=== PATIENT | female | born 1990 | race Caucasian/White ===

== ENCOUNTER 2020-02-02 01:38 | Outpatient (CLI) | payer OTHER, SELFPAY ==
[2020-02-02 22:13] LABS: SARS-CoV-2 RNA PCR Negative
== END 2020-02-02 01:39 | disposition home or self-care (01) ==
LOC: ANHCOVIDDT 01:39
PROVIDERS: Visit Provider Obstetrics & Gynecology
DX: Z01.812 Encounter for preprocedural laboratory examination (principal); Z20.828 Contact with and (suspected) exposure to other viral communicable diseases
CPT/HCPCS: 87635; C9803; U0003

== ENCOUNTER 2020-02-05 00:37 | Day surgery (SDC) | payer OTHER, SELFPAY ==
[2020-01-21 13:32] VITALS: BMI 24.2
[2020-02-05] VITALS (9 sets, daily range): BP systolic 86–109; BP diastolic 46–70; PULSE 55–89; RESP 12–16; TEMP 36.3; O2SAT 100
--- NOTE | 2020-02-05 07:14 | WPDHPUPDATE1 ---
History and Physical Update Update Date/Time: 02/05/20 07:14 History and Physical has been reviewed, including an updated exam of the patient. There are NO changes in the patient's condition. Risks, benefits, and alternatives have been discussed and questions answered. Patient agrees to proceed with procedure.
[2020-02-05] MEDS: ACETAMINOPHEN 500 MG TABLET 1000 MG PO (08:02)
--- NOTE | 2020-02-05 08:11 | WPDANESEPPF ---
Anes - Initial Pre Proc Eval Procedure: Operation Date: 02/05/20 08:30 Proposed Procedures p Labiaplasty - Florina Santiago MD Date/Time: 02/05/20 08:11 Surgeon: Florina Santiago MD Pre Op Diagnosis: Hypertrophy of Vulva Patient Data Age: 29 Gender: F Height: 5 ft 2 in Weight: 60 kg Allergies Allergy/AdvReac Type Severity Reaction Status Date / Time Penicillins Allergy Intermediate Hives / Unverified 02/05/20 07:47 Red Face Home Medications Medication Instructions Recorded Confirmed Type clobetasol 1 applic TOPICAL DAILY 01/21/20 02/05/20 History levothyroxine 75 mcg PO DAILY 01/21/20 02/05/20 History Tylenol 1,000 mg PO PRN 02/05/20 02/05/20 History biotin 2,500 mcg PO DAILY 02/05/20 02/05/20 History docosahexaenoic acid-epa [Fish Oil 1 cap PO DAILY 02/05/20 02/05/20 History (with DHA-EPA)] ibuprofen 600 mg PO Q6H PRN 02/05/20 02/05/20 History iron-vitamin B complex tablet PO 02/05/20 History vit no.617-jeilp-rlc 1 tablet PO 02/05/20 History [Alive ] vitamin A 02/05/20 History Patient hx anesthesia problems: none Family hx anesthesia problems: none PMFSH Past Medical History Medical History Hypothyroid Social History Social History Smoking status: Never smoker Second hand tobacco smoke exposure: No Alcohol intake: never Substance use: never Substance use type: does not use Living arrangements: with family Gender identity (if verbalized by the patient): Female Sexual Orientation (if Verbalized by the Patient): Straight or Heterosexual Spiritual care concerns: No Anes - Eval Final PreProcedure Day of Procedure 02/05/20 08:11 Patient weight: normal Heart: regular rate and rhythm Lungs: clear to auscultation Airway: Mallampati scale class II Neurological: alert and oriented Last oral intake: >/= 8 hours ASA classification: II Emergent: no Anesthetic plan: proceed Anesthesia type and monitoring: general LMA and standard monitoring Informed Consent: The patient's anesthetic plan and its attendant risks and benefits were discussed with the patient/family/POA. Questions were solicited and answers provided to the satisfaction of the patient/family/POA.
[2020-02-05] MEDS: LACTATED RINGERS 1,000 ML 30 ML IV CONT ×2 (08:19→10:12)
[2020-02-05] MEDS: BACITRACIN OINTMENT 15 GM TUBE 1 APPLIC TOPICAL (09:28)
[2020-02-05] MEDS: fentaNYL CITRATE INJ (*CRX) 100 MCG/2 ML VIAL 25 MCG IV PUSH ×8 (09:37→10:12)
--- NOTE | 2020-02-05 10:05 | PM.PROC ---
Procedure Note - Detailed Date of procedure: 02/05/20 Pre-op diagnosis: Hypertrophy of Vulva Post-op diagnosis: same Procedure performed: Labial plasty, bilateral Description of procedure: patient was taken the operating room, she was prepped and draped in the dorsal lithotomy position, after induction of general anesthesia. The the bilateral labia were marked with a marking pen to determine the best incision line from the infra clitoral area of the labia minora posteriorly to the labia where it resolves into the vulvar skin. There was hypertrophic skin bilaterally on the labia minora. About a cm and half below the clitoris the skin was incised with a scalpel the skin incisions bilaterally round from the in from infra clitoral area posteriorly to the skin surface of the vulva. It was marked with a marking pen and in the neutral position. Skin incisions were completed trans labial the. Cut areas were cauterized below the skin were bleeding was happening. Skin was then closed with 3 O Vicryl in interrupted sutures without was completed it was covered with bacitracin ointment. Patient was taken recovery room in stable condition. She tolerated the procedure well. Anesthesia: GETA Surgeon: Florina Santiago MD Estimated blood loss (mL): 20 Drains: No Packing: No Pathology: none sent Complications: No immediate complications Condition: stable Disposition: PACU Findings: Hypertrophic labia minora bilaterally
[2020-02-05] MEDS: ONDANSETRON INJ 4 MG/2 ML VIAL IV PUSH (10:35)
--- NOTE | 2020-02-05 10:46 | SUR.PHASEII ---
1035; PT C/O NAUSEA. ZOFRAN GIVEN IV. 1045; PT STATES PAIN 11/11, SHE WOULD LIKE TO EAT SOME GLUTEN FREE TOAST BEFORE TAKING A PAIN PILL. GLUTEN FREE TOAST ORDERED FROM DIETARY
[2020-02-05] MEDS: HYDROmorphone HCL INJ (*CRX) 1 MG/ML SYR 0.5 MG IV PUSH (10:58)
--- NOTE | 2020-02-05 11:05 | SUR.PHASEII ---
REPORT GIVEN TO DAVIDSON VIGIL RN
--- NOTE | 2020-02-05 11:54 | SUR.PHASEII ---
CARE ASSUMED OF PT
--- NOTE | 2020-02-05 12:06 | SUR.PHASEII ---
1200; PT AWAKE, GROGGY. STATES PAIN BETTER AND TOLERABLE NOW. STATES NAUSEA IMPROVED. PT EATING GF TOAST. THEN WILL TAKE A PAIN PILL.
[2020-02-05] MEDS: oxyCODONE HCL (*CRX) 5 MG TAB IR PO (13:00)
--- NOTE | 2020-02-05 13:32 | SUR.PHASEII ---
1300; PT AWAKE AND ALERT. STATES PAIN AND NAUSEA IMPROVED AND READY TO GO HOME. MEETS DISCHARGE CRITERIA
== END 2020-02-05 13:10 | disposition home or self-care (01) ==
PROVIDERS: Visit Provider Obstetrics & Gynecology
PROC: (CPT 56620; principal; 2020-02-05 08:30)
DX: N90.60 Unspecified hypertrophy of vulva (principal); E03.9 Hypothyroidism, unspecified
CPT/HCPCS: 56620; A9270; J1100; J1170; J2250; J2405; J2704; J3010; J7120

== ENCOUNTER 2021-02-05 09:27 | Outpatient (CLI) | payer OTHER, SELFPAY ==
--- NOTE | ~2021-02-05 | XR_ITS ---
EXAMINATION: XR knee RT 3V EXAM DATE: 02/05/2021 09:45 INDICATION: Pain in RT knee, [place]/Feeling W/Bend/Extend,X2yr. TECHNIQUE: Three projections of the right knee. There is no prior study for comparison. FINDINGS: No evidence osteochondral defect or joint body in the right knee joint. There are no acut e fractures or dislocations identified. There is no subcutaneous gas. No joint effusion. There are no radiopaque foreign bodies. IMPRESSION: 1. Unremarkable XR knee RT 3V exam. Reviewed, dictated and finalized at location A.
== END 2021-02-05 09:28 | disposition home or self-care (01) ==
LOC: CHSIMG 09:29
PROVIDERS: PCP Family Medicine; Visit Provider Family Medicine
DX: M25.561 Pain in right knee (principal)
CPT/HCPCS: 73562

== ENCOUNTER 2021-02-23 12:03 | Outpatient (CLI) | payer OTHER, SELFPAY ==
[2021-02-23 13:06] LABS: Influenza A QL RT-PCR Negative (Negative); Influenza B QL RT-PCR Negative (Negative); SARS-CoV-2 RNA PCR Positive (Negative)
== END 2021-02-23 12:04 | disposition home or self-care (01) ==
LOC: CHSLAB 12:05
PROVIDERS: PCP Family Medicine; Visit Provider Family Medicine
DX: U07.1 COVID-19 (principal)
CPT/HCPCS: 87502; C9803; U0003; U0005

== ENCOUNTER 2022-06-18 04:55 | Inpatient (IN) | payer OTHER, SELFPAY ==
[2022-06-18] VITALS (29 sets, daily range): BP systolic 101–149; BP diastolic 61–102; PULSE 91–115; RESP 18; TEMP 36.6–37.3; O2SAT 96; BMI 37.3
--- NOTE | 2022-06-18 05:33 | LDADM ---
This patient, Marianna Rubio, was admitted to Labor/Delivery/Recovery 107 on 06/18/22 at 04:55. Plans for labor, pain management and were discussed with patient. Patient/family oriented to hospital policies and general routines including ID bracelet, bed and alarms, visiting hours, pain management, procedures, bathroom and other care routines, personal items, smoking policy, room service/diet and guest tray routines, security routines, and visiting hours. Patient/Family are encouraged to report perceived risks to care and to ask questions if they do not understand what they are told or what they should do. See OBIX for further documentation.
[2022-06-18 05:38] LABS: Basophils Percent Auto 0.3 % (0.2-1.2); Eosinophils Absolute Auto 0.3 K/mm3 (0-0.3); Hematocrit 35.3 % (37.0-47.0); Hemoglobin 11.9 g/dL (12.0-15.0); Immature Granulocyte Absolute 0.14 K/mm3 (0.00-0.031); Immature Granulocyte Percent A 1.1 % (0-0.5); Lymphocytes Percent Auto 17.4 % (18.3-44.2); Mean Corpuscular HGB Conc 33.7 g/dl (32-36); Mean Corpuscular Hemoglobin 30.4 pg (26-34); Mean Corpuscular Volume 90.3 fl (80-100); Mean Platelet Volume 10.3 fl (7.4-10.4); Monocytes Absolute Auto 0.9 K/mm3 (0.1-0.6); Monocytes Percent Auto 6.6 % (2.6-8.5); Neutrophils Absolute Auto 9.6 K/mm3 (1.3-6.7); Neutrophils Percent Auto 72.6 % (45.5-73.1); Platelet Count Result 197 k/mm3 (150-375); Red Blood Count 3.91 M/mm3 (4.2-5.4); Red Cell Distribution Width 14.1 % (11.5-14.5); White Blood Count 13.2 K/mm3 (4.5-10.0)
[2022-06-18] MEDS: LACTATED RINGERS 1,000 ML 125 ML IV CONT (06:00)
[2022-06-18] MEDS: ceFAZolin 2 GM/D5W 50 ML 2 GM/50 ML BAG IVPB (06:00)
[2022-06-18] MEDS: OXYTOCIN 30 UNITS/NS 500 ML 30 UNITS/500 ML BAG IV CONT (06:00)
--- NOTE | 2022-06-18 06:30 | WPDANESEPP ---
Anes - Eval Pre Procedure Procedure: labor epidural Date/Time: 06/18/22 06:30 Surgeon: amor Preop Diagnosis: pain during labor Pre Op Diagnosis: IOL Patient Data Age: 32 Gender: F Height: 1.57 m Weight: 92.5 kg Last Vital Signs Pulse 98 06/18/22 06:15 BP 108/63 06/18/22 06:15 O2 Del Method Room Air 06/18/22 05:33 Allergies Allergy/AdvReac Type Severity Reaction Status Date / Time Penicillins Allergy Intermediate Hives / Verified 05/29/22 13:33 Red Face Home Medications Medication Instructions Recorded Confirmed Type levothyroxine 75 mcg tablet 75 mcg PO DAILY 01/21/20 06/18/22 History iron-vitamin B complex tablet 1 tablet PO DAILY 02/05/20 06/18/22 History vitamin no.138-folic acid 1 tablet PO DAILY 02/05/20 06/18/22 History 400 mcg-dha 25 mg chewable tablet (Alive ) Laboratory Tests 06/18/22 06/18/22 05:27 05:27 WBC 13.2 K/mm3 H K/mm3 (4.5-10.0) RBC 3.91 M/mm3 L M/mm3 (4.2-5.4) Hgb 11.9 g/dL L g/dL (12.0-15.0) Hct 35.3 % L % (37.0-47.0) MCV 90.3 fl fl (80-100) MCH 30.4 pg pg (26-34) MCHC 33.7 g/dl g/dl (32-36) RDW 14.1 % % (11.5-14.5) Plt Count 197 k/mm3 k/mm3 (150-375) MPV 10.3 fl fl (7.4-10.4) Immature Gran % (Auto) 1.1 % H % (0-0.5) Neut % (Auto) 72.6 % % (45.5-73.1) Lymph % (Auto) 17.4 % L % (18.3-44.2) [place] % (Auto) 6.6 % % (2.6-8.5) Eos % (Auto) 2.0 % % (0-4.4) Baso % (Auto) 0.3 % % (0.2-1.2) Lymph # (Auto) 2.30 K/mm3 K/mm3 (0.9-3.2) [place] # (Auto) 0.9 K/mm3 H K/mm3 (0.1-0.6) Eos # (Auto) 0.3 K/mm3 K/mm3 (0-0.3) Baso # (Auto) 0.0 K/mm3 K/mm3 (0.0-0.1) Abs Immat Gran (auto) 0.14 K/mm3 H K/mm3 (0.00-0.031) Absolute Neuts (auto) 9.6 K/mm3 H K/mm3 (1.3-6.7) Absolute Nucleated RBC 0.0 K/mm3 K/mm3 (0.0-0.012) Nucleated RBC % 0.0 % % (0.0-0.2) RPR Pending Patient hx anesthesia problems: none Family hx anesthesia problems: none Results Review: All pre-operative results and documents have been reviewed as part of the pre-operative evaluation. [facility] Past Medical History Medical History (Updated 06/18/22 @ 06:32 by Selma Edmondson CRNA) Hypothyroid IUP (intrauterine ), incidental Obesity (BMI 30-39.9) Family History Family History (Updated 05/29/22 @ 13:38 by Zaida Sethi RN) Father Liver failure Diabetes mellitus Asthma Hepatitis C Social History Social History Smoking status: Never smoker Second hand tobacco smoke exposure: No Alcohol intake: never Substance use: never Substance use type: does not use Lack of Transportation: No Lack of Food: Never True Current Housing: I Have Housing Concerned About Future Housing: No Difficulty Paying Gas/Electric Bills: No Difficulty Paying for Meds: No Currently Unemployed: No Education: Trade/Vocational Certificate Difficulty w/ Childcare or Family Care: No Living arrangements: with family Gender identity (if verbalized by the patient): Female Sexual Orientation (if Verbalized by the Patient): Straight or Heterosexual Spiritual care concerns: No Exam Day of Procedure 06/18/22 06:30
--- NOTE | 2022-06-18 07:06 | PM.IMHP ---
H&P: HPI History of Present Illness Date/Time: 06/18/22 07:06 Chief Complaint: induction of labor Narrative: Marianna is a 32yo at 39.0 for IOL. She has a history of shoulder dystocia of her last. That baby was 8-5 and was a water . She has declined a section after counseling and recommendation of this. She is planning NCB, but we have agreed upon a delivery in the bed in standard positioning so that shoulder dystocia can be dealt with more easily if encountered. Baby was measuring 81% and 89% AC.GBS pos. Review of Systems Review of Systems: All systems reviewed & are unremarkable except as noted in HPI and below PMFSH Past Medical History Medical History (Updated 06/18/22 @ 07:12 by Giulia Reddy MD) Hypothyroid IUP (intrauterine ), incidental Obesity (BMI 30-39.9) Family History Family History (Updated 05/29/22 @ 13:38 by Zaida Sethi RN) Father Liver failure Diabetes mellitus Asthma Hepatitis C Social History Social History Smoking status: Never smoker Second hand tobacco smoke exposure: No Alcohol intake: never Substance use: never Substance use type: does not use Lack of Transportation: No Lack of Food: Never True Current Housing: I Have Housing Concerned About Future Housing: No Difficulty Paying Gas/Electric Bills: No Difficulty Paying for Meds: No Currently Unemployed: No Education: Trade/Vocational Certificate Difficulty w/ Childcare or Family Care: No Living arrangements: with family Gender identity (if verbalized by the patient): Female Sexual Orientation (if Verbalized by the Patient): Straight or Heterosexual Spiritual care concerns: No Meds Home Medications and Allergies Home Medications Medication Instructions Recorded Confirmed Type levothyroxine 75 mcg tablet 75 mcg PO DAILY 01/21/20 06/18/22 History iron-vitamin B complex tablet 1 tablet PO DAILY 02/05/20 06/18/22 History vitamin no.138-folic acid 1 tablet PO DAILY 02/05/20 06/18/22 History 400 mcg-dha 25 mg chewable tablet (Alive ) Allergies Allergy/AdvReac Type Severity Reaction Status Date / Time Penicillins Allergy Intermediate Hives / Verified 05/29/22 13:33 Red Face Vital Signs Vital Signs - 24 hr 06/18/22 05:31 06/18/22 05:46 06/18/22 06:15 Pulse Rate 95 94 98 Blood Pressure 126/65 113/76 108/63 Oxygen Delivery 06/18/22 06:30 06/18/22 06:45 06/18/22 07:00 Pulse Rate 96 103 H 91 Blood Pressure 110/68 115/61 124/84 Oxygen Delivery 06/18/22 05:33 Pulse Rate Blood Pressure Oxygen Delivery Room Air Exam Const: General: no acute distress Resp: Effort & Inspection: normal respiratory effort Auscultation: clear to auscultation bilaterally Cardio: Rate: regular rate Rhythm: regular rhythm GI: GI Palp: Yes Soft to palpation Extrem: General: normal to inspection H&P: Results Labs Labs: Short CBC 06/18/22 Range/Units 05:27 WBC 13.2 H (4.5-10.0) K/mm3 Hgb 11.9 L (12.0-15.0) g/dL Hct 35.3 L (37.0-47.0) % Plt Count 197 (150-375) k/mm3 Assessment and Plan Assessment and plan (1) Encounter for induction of labor: Code(s): Z34.90 - Encounter for supervision of normal , unspecified, unspecified trimester Status: Acute (2) History of shoulder dystocia in prior : Code(s): Z87.59 - Personal history of other complications of , childbirth and the puerperium Status: Acute Plan GBS pos, PCN allergy, ancef x1 in FHT category 1 Counseled re risks of shoulder dystocia, including permanent neurologic injury or to infant. recommended section at care, pt categorically declined, but is reasonable about delivering in bed in standard position. Shoulder dystocia was with a water , so difficult to predict if there is a true ris
[2022-06-18] MEDS: ONDANSETRON INJ 4 MG/2 ML VIAL IV PUSH (13:24)
[2022-06-18] MEDS: ceFAZolin 1 GM/NS 50 ML 1 GM/50 ML BAG IVPB (13:41)
--- NOTE | 2022-06-18 13:53 | PM.OBPNLAB ---
Pain Control Date/time seen: 06/18/22 13:53 Comments: very uncomfortable, pain in rectal area. Pelvic Exam Dilation (cm): 5 Effacement (%): 80 station: -3 Amniotic membrane status: Ruptured Contractions Monitor mode: Internal Contraction frequency: 2 Contraction duration: 1 Contraction pattern: Regular Contraction intensity: Mild Status status: Category l Comments: 130 mod with accels no decels Assessment and Plan Assessment: induction ongoing Comments: iupc placed. contractions about 40 mvu each, not adequate. stop pit for 20 min, then restart. position change, suspect OP. epidural if she desires. FHT category 1
[2022-06-18] MEDS: fentaNYL CITRATE INJ (*CRX) 100 MCG/2 ML VIAL 50 MCG IV PUSH ×2 (14:33→15:26)
[2022-06-18] MEDS: METHYLERGONOVINE MALEATE 0.2 MG/ML VIAL IM (16:15)
[2022-06-18] MEDS: miSOPROStol 200 MCG TABLET 800 MCG (16:19)
--- NOTE | 2022-06-18 16:25 | PM.OBPRVD ---
OB - Delivery Note Procedure Delivery date: 06/18/22 Procedure: Events: Elective Induction of Labor Induction method: AROM and Per Pitocin Protocol Delivery monitor: External FHT and Internal Uterine Route of delivery: Laceration Description: Perineal - 2nd Degree Delivery repair: vicryl Quantitative Blood Loss (ml): 450 Anesthesia type: Local Disposition: Floor Narrative: With adequate expulsive efforts by the mother, the baby's head was delivered OA. The baby's anterior shoulder was delivered under the pubic symphysis without difficulty. The posterior shoulder and the rest of the baby delivered without difficulty. The infant was placed on the mothers chest and suctioned and stimulated. The cord was clamped and cut after 30 seconds. Mother and baby both stable. Placenta delivered spontaneously, mild hemorrhage due to atony of the lower uterine segment treated with pitocin, cytotec, and methergine. Baby Date of : 06/18/22 Time of : 15:52 Weeks of gestation at delivery: 39 Infant gender: Female Weight (pounds): 7 Weight (ounces): 15 presentation: vertex Placenta delivery description: Spontaneous Cord Vessel Description: 3 Vessels, Nuchal Cord and Delayed Cord Clamping score one minute: 5 score five minutes: 8
[2022-06-18] MEDS: OXYTOCIN 30 UNITS/NS 500 ML 30 UNITS/500 ML BAG 125 UNITS IV CONT (16:26)
[2022-06-18] MEDS: IBUPROFEN 600 MG TABLET PO (17:18)
[2022-06-18] MEDS: WITCH HAZEL 40 PADS 1 PAD TOPICAL (17:50)
[2022-06-18] MEDS: BENZOCAINE 20% AER SPR (*SP) 56 GM CAN 1 SPRAY TOPICAL (17:50)
--- NOTE | 2022-06-18 18:45 | PC.NURSE ---
Patient transferred to post room # 280 via ( w/c ). Support person present. Oriented to unit, room, information board, rooming in, admission packet and security measures. Patient verbalizes understanding.
[2022-06-18] MEDS: ACETAMINOPHEN 325 MG TABLET 650 MG PO (21:46)
[2022-06-19 01:24] VITALS: BP 99/52; PULSE 80; RESP 18; TEMP 37.1; O2SAT 95
--- NOTE | 2022-06-19 04:25 | PM.OBPNVD ---
OB - PN: Subj Subjective Date/time seen: 06/19/22 04:25 vaginal delivery day 1 doing well, no complaints OB - PN: Obj Data Labs 06/18/22 05:27 Labs: Laboratory Results - last 24 hr 06/18/22 06/18/22 05:27 05:27 WBC 13.2 H RBC 3.91 L Hgb 11.9 L Hct 35.3 L MCV 90.3 MCH 30.4 MCHC 33.7 RDW 14.1 Plt Count 197 MPV 10.3 Immature Gran % (Auto) 1.1 H Neut % (Auto) 72.6 Lymph % (Auto) 17.4 L [place] % (Auto) 6.6 Eos % (Auto) 2.0 Baso % (Auto) 0.3 Lymph # (Auto) 2.30 [place] # (Auto) 0.9 H Eos # (Auto) 0.3 Baso # (Auto) 0.0 Abs Immat Gran (auto) 0.14 H Absolute Neuts (auto) 9.6 H Absolute Nucleated RBC 0.0 Nucleated RBC % 0.0 Blood Type O Positive Antibody Screen Negative OB - PN A/P Plan day: 1 Time Spent With Patient Time: Total time spent is greater than 50% in coordination of care (as documented) at patient's floor/unit and/or counseling patient: Review of Systems Review of Systems: All systems reviewed & are unremarkable except as noted in HPI and below Exam Const: General: cooperative, healthy appearing and comfortable
[2022-06-19 04:42] VITALS: BP 111/56; PULSE 83; RESP 18; TEMP 36.9; O2SAT 95
[2022-06-19] MEDS: IBUPROFEN 600 MG TABLET PO ×2 (05:04→12:35)
[2022-06-19 07:50] VITALS: BP 95/58; PULSE 85; RESP 18; TEMP 36.8
[2022-06-19 07:50] LABS: Hematocrit 33.6 % (37.0-47.0); Hemoglobin 11.3 g/dL (12.0-15.0)
[2022-06-19] MEDS: MULTIVIT/MIN/PREN/FOL AC/IRON TABLET 1 TAB PO (12:32)
[2022-06-19] MEDS: DOCUSATE SODIUM 100 MG CAPSULE PO ×2 (12:33→17:28)
[2022-06-19 13:21] LABS: Rapid Plasma Reagin Non-Reactive (NonReactive)
[2022-06-19] MEDS: ACETAMINOPHEN 325 MG TABLET 650 MG PO (17:29)
[2022-06-19 20:06] VITALS: BP 121/71; PULSE 72; RESP 18; TEMP 36.6; O2SAT 100
[2022-06-20] MEDS: IBUPROFEN 600 MG TABLET PO ×2 (02:57→12:45)
[2022-06-20 08:00] VITALS: BP 105/60; PULSE 77; RESP 18; TEMP 36.7
[2022-06-20] MEDS: ACETAMINOPHEN 325 MG TABLET 650 MG PO (08:02)
[2022-06-20] MEDS: DOCUSATE SODIUM 100 MG CAPSULE PO (08:04)
[2022-06-20] MEDS: MULTIVIT/MIN/PREN/FOL AC/IRON TABLET 1 TAB PO (08:04)
--- NOTE | 2022-06-20 10:20 | PM.OBPNVD ---
OB - PN: Subj Subjective Date/time seen: 06/20/22 10:20 s/p vaginal delivery day 2 OB - PN: Obj Data Labs 06/19/22 04:45 Labs: Laboratory Results - last 24 hr 06/18/22 05:27 RPR Non-reactive OB - PN A/P Plan day: 2 Time Spent With Patient Time: Total time spent is greater than 50% in coordination of care (as documented) at patient's floor/unit and/or counseling patient: Review of Systems Review of Systems: All systems reviewed & are unremarkable except as noted in HPI and below Exam Const: General: cooperative, healthy appearing and comfortable
--- NOTE | 2022-06-20 10:22 | PM.OBDSVD ---
DS: Admitting Diagnosis Discharge Date 06/20/22 Admitting Diagnosis IOL DS: Discharge Diagnosis Discharge Diagnosis (1) Vaginal delivery: Code(s): O80 - Encounter for full-term uncomplicated delivery Status: Acute OB - DS: Summary OB Procedures : None OB Procedures Intrapartum: Spontaneous Vag Delivery OB Procedures: : None Time Spent with Patient Time attestation: Total time spent providing and/or coordinating discharge services: DS: Data Data Completed and Pending Labs on day of discharge: Labs from last 24 hours 06/18/22 05:27 RPR Non-reactive Discharge Plan Discharge Attending physician on discharge: lForina Santiago Discharging Clinician: Dorothea Quiros Patient Disposition: Home, Self-Care Activity: pelvic rest Diet: regular Patient Instructions: Antibiotic Form Stand Alone Forms: General Discharge Information Follow-up/Referrals: Giulia Reddy MD [Physician] - 4 Weeks Discharge Medications: New ibuprofen 600 mg Tablet 600 mg PO Q6H PRN (Reason: Cramping) Qty: 30 0RF Continued levothyroxine 75 mcg tablet 75 mcg PO DAILY Alive 400 mcg- 25 mg Tablet,Chewable 1 tablet PO DAILY iron-vitamin B complex Tablet 1 tablet PO DAILY Date of admission: 06/18/22 04:55 Primary Care Provider: Dante Matias Admitting Provider: Giulia Reddy Attending physician on admission: Giulia Reddy Condition: Stable
[2022-06-21 08:25] VITALS: BP 120/76; PULSE 83; RESP 20; TEMP 37.8; O2SAT 99
== END 2022-06-20 13:05 | disposition home or self-care (01) | DRG 560 ==
LOC: ANHOB2 06-20 10:36 → ANHLDR 06-21 11:54 → ANHOB2 06-21 11:54
PROVIDERS: Admitting Provider Obstetrics & Gynecology; PCP Family Medicine; Visit Provider Advanced Practice Midwife
DX: O99.824 Streptococcus B carrier state complicating childbirth (principal); E03.9 Hypothyroidism, unspecified; O99.284 Endocrine, nutritional and metabolic diseases complicating childbirth; O70.1 Second degree perineal laceration during delivery; O67.8 Other intrapartum hemorrhage; O72.1 Other immediate postpartum hemorrhage; O69.81X0 Labor and delivery complicated by cord around neck, without compression, not applicable or unspecified; Z3A.39 39 weeks gestation of pregnancy; Z37.0 Single live birth
CPT/HCPCS: 36415; 85014; 85018; 85025; 86592; 86850; 86900; 86901; A9270; J0690; J2210; J2405; J2590; J3010; J7120

== ENCOUNTER 2025-01-03 10:05 | Outpatient (CLI) | payer OTHER, SELFPAY ==
--- NOTE | ~2025-01-03 | XR_ITS ---
XR cervical spine 4-5V Indication: CERVICALGIA, DORSALGIE, UNSPECIFIED Comparison: None Findings: The vertebral heights are intact. No fracture or subluxation. The disc heights are intact. Soft tissues unremarkable Impression: No acute abnormality. Reviewed, dictated and finalized at location P. Impression: No acute abnormality.
--- NOTE | ~2025-01-03 | XR_ITS ---
XR thoracic spine min 4V Indication: CERVICALGIA, DORSALGIE, UNSPECIFIED Comparison: None Findings: Mild levoconvex scoliosis, no fracture or subluxation The disc heights are intact. Soft tissues unremarkable Impression: No acute abnormality. Reviewed, dictated and finalized at location P. Impression: No acute abnormality.
--- NOTE | ~2025-01-03 | XR_ITS ---
XR lumbar spine 2-3V Indication: CERVICALGIA, DORSALGIE, UNSPECIFIED Comparison: None Findings: Mild levoconvex scoliosis. Minimal loss of disc height with remote superior endplate fracture of L2, no acute fracture or subluxation. Moderate loss of disc height at L1-2. Soft tissues unremarkable Impression: No acute abnormality. Reviewed, dictated and finalized at location P. Impression: No acute abnormality.
[2025-01-03 10:22] LABS: Hematocrit 41.3 % (35.0-49.0); Hemoglobin 13.9 g/dL (12.0-15.0); Immature Granulocyte Percent A 0.3 % (0.0-0.0); Lymphocytes Absolute Auto 2.03 K/mm3 (1.10-4.50); Mean Corpuscular HGB Conc 33.7 g/dL (32-36); Mean Corpuscular Hemoglobin 31.6 pg (27.0-31.0); Mean Corpuscular Volume 93.9 fL (78.0-102.0); Nucleated Red Blood Cells Absolute Auto 0.00 K/mm3 (0.00-0.00); Nucleated Red Blood Cells Perc 0.0 % (0-0.0); Platelet Count Result 229 K/mm3 (150-420); Red Blood Count 4.40 M/mm3 (4.20-5.40); White Blood Count 7.5 K/mm3 (4.8-10.8)
--- OUTSIDE RECORDS SUMMARY | 2025-01-03 10:40 | XMS_ITS | Encounter Summary ---
Author Organization [facility] Address [address] [place] [id number] Care Team Providers Care Care Technician Name Role Phone None, Provider Primary Care Provider Unavaila ble None, Provider Primary Care Provider Unavaila ble Sol Oliveira MD Primary Care Provider [phone] Encounter Details Date Type Department Care Team (Late st Contact Info) Description 09/09/2018 Abstract SFL CONVERSION [address] [place] [address] , Generic Conversion, Social History Tobacco Use Types Packs/Day Years Used Date Smoking Tobacco: Never Assessed Comments Unknown Sex and Gender Information Value Date Recorded Sex Assigned at Not on file 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
--- OUTSIDE RECORDS SUMMARY | 2025-01-03 10:40 | XMS_ITS | Clinical Summary ---
Author Organization [facility] Address [address] [place] [address] Care Team Providers Care Antique Jewelry Repairer Name Role Phone Unavailable Primary Care Provider Unavailabl e Allergies Active Allergy Reactions Criticality Noted Date Comments Levothyroxine Rash Low 05/08/2019 Rash, lip tingling Penicillins Hives Medium 10/09/2018 Medications magnesium chloride EC 64 MG Tab EC tablet Take 64 mg by mouth daily. Active ferrous sulfate, 65 mg elemental, 325 (65 FE) MG tablet Take 325 mg by mouth daily with breakfast. Active Biotin w/ Vitamins C & E (HAIR/SKIN/NAILS OR) Take 1 tablet by mouth daily. Active bisacodyl EC 5 MG Tab EC tablet Take 1 tablet (5 mg total) by mouth daily as needed. at bedtime. 60 tablet 1 0 Active ondansetron 4 MG tablet Take 1 tablet (4 mg total) by mouth every 8 (eight) hours as needed for Nausea. 20 tablet 0 Active ketoconazole 2 % shampoo 0 Active Fluocinolone Acetonide Scalp 0.01 % Oil APPLY TO WET SCALP X4 6 HOURS NIGHTLY X2 WEEKS THEN 1 2 TIMES A WEEK THEN RINSE 0 Active clobetasol 0.05 % creamIndications:Ps oriasis Apply to elbows, knees, ears twice daily for 2 weeks and then as needed 60 g 0 Active Clobetasol Propionate 0.05 % ShampooIndications: Psoriasis Shampoo hair 1-2 daily until skin improved and then as needed 118 mL 0 Active DICLOFENAC EC 50 MG tabletIndications:A rthralgia, unspecified joint TAKE 1 TABLET BY MOUTH TWICE A DAY 60 tablet 0 Active LEVOTHYROXINE 75 MCG tabletIndications:O ther specified hypothyroidism TAKE 1 TABLET BY MOUTH EVERY DAY IN THE MORNING 90 tablet 3 1 Active Active Problems Problem Noted Date Diagnosed Date Psoriasis 08/31/2019 Other specified hypothyroidism 06/01/2019 Closed wedge compression fra cture of L2 vertebra with routine healing 05/01/2019 Closed L2 vertebral fracture (CMS/HCC HHS/HCC) 0 05/01/2019 Family History Medical History Relation Comments Asthma Father Diabetes Father Hypertension Maternal Grandmother Diabetes Mother Hypertension Mother Relation Status Comments Father Maternal Grandmother Mother Social History Tobacco Use Types Packs/Day Years Used Date Smoking Tobacco: Never Smokeless Tobacco: Never Alcohol Use Standard Drinks/Week Comments Yes 0 (1 standard drink = 0.6 oz pur e alcohol) occasional AUDIT-C Answer Date Recorded Frequency of Alcohol Consumption Never 10/09/2018 Average Number of Drinks Not on file 019 Frequency of Binge Drinking Not on file 11/2018 Comments Unknown Sex and Gender Information Value Date Recorded Sex Assigned at Not on file 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 Gender Identity Not on file Sexual Orientation Not on file Last Filed Vital Signs Vital Sign Reading Time Taken Comments Blood Pressure 122/70 06/01/2019 10:47 AM AUCTION ASSISTANT Pulse 68 06/01/2019 10:47 AM AUCTION ASSISTANT Temperature 37.1 C (98.8 F) 05/03/2019 2:05 PM AUCTION ASSISTANT Respiratory Rate 20 06/01/2019 10:47 AM AUCTION ASSISTANT Oxygen Saturation 99% 05/08/2019 9:33 AM AUCTION ASSISTANT Inhaled Oxygen Concentration - - Weight 64.9 kg (143 lb) 06/01/2019 10:47 AM AUCTION ASSISTANT with brace Height 160 cm (5' 3) 06/01/2019 10:47 AM AUCTION ASSISTANT Body Mass Index 25.33 06/01/2019 10:47 AM AUCTION ASSISTANT Plan of Treatment Health Maintenance Due Date Last Done Comments Cervical Cancer Screening Pap Smear (Age 30 to 64) Every 3 Years 1990 Annual Physical 1993 HPV Vaccines (3 - 3-dose series) 07/26/2007 04/25/2007, 01/24/2007 Hepatitis C 2008 DTaP, Tdap and Td Vaccines (2 - Tdap) 2009 11/16/1995, 02/08/1992, 01/29/1991, Additional history exists Hepatitis B Vaccines (1 of 3 - 19+ 3-dose series) 2009 Cervical Cancer Screening Pap with HPV Testing (Age 30 to 64) Every 5 Years 2020 Cervical Cancer Screening with HPV 2020 COVID-19 Vaccine ( season) 2024 Meningococcal B Vaccine Aged Out No l onger eligible based on patient's age to complete this topic Meningococcal Vaccine Aged Out No jose manuel alanna eligible based on patient's age to complete this topic Pneumococcal Vaccine: Pediatrics (0 to 5 Years) and At-Risk Patients (6 to 49 Years) Aged Out No longer eligible based on patient's age to complete this topic RSV Immunizations Under 20 Months Aged Out No longer eligible based on patient's age to complete this topic Insurance [address] [address] [employer] [place] Advance Directives * Full Code (Latest Code Status on File) Date Activated Date Inactivated Comments 05/01/2019 12:06 PM 05/03/2019 7:42 PM
--- OUTSIDE RECORDS SUMMARY | 2025-01-03 10:40 | XMS_ITS | Clinical Summary ---
Author Organization [facility] Address [address] [place] [address] Phone Care Team Providers Care Brush Or Broom Cutter Name Role Phone Unavailable Primary Care Provider Unavailabl e Social History Tobacco Use Types Packs/Day Years Used Date Smoking Tobacco: Never Assessed Comments Unknown Sex and Gender Information Value Date Recorded Sex Assigned at Not on file Legal Sex Female 6:03 PM CDT Gender Identity Not on file Sexual Orientation Not on file Plan of Treatment Not on file
[2025-01-03 11:56] LABS: Alanine Aminotransferase 16 U/L (6-35); Albumin Level 5.0 g/dL (3.5-5.1); Alkaline Phosphatase 50 U/L (38-126); Anion Gap 10 mmol/L (4-12); Aspartate Amino Transferase 22 U/L (14-36); Bilirubin,Total 0.6 mg/dL (0.2-1.3); Blood Urea Nitrogen 18 mg/dL (7-17); Calcium 10.1 mg/dL (8.4-10.2); Carbon Dioxide 29 mmol/L (22-30); Chloride 103 mmol/L (98-107); Estimated Glomerular Filt Rate > 60; Glucose 72 mg/dL (65-110); Osmolality Calculated 294 mOsm/kg (285-295); Potassium 4.4 mmol/L (3.4-5.0); Sodium 142 mmol/L (137-145); Total Protein 8.7 g/dL (6.3-8.2)
== END 2025-01-03 10:06 | disposition home or self-care (01) ==
PROVIDERS: PCP Family Medicine; Visit Provider Family Medicine
DX: M54.9 Dorsalgia, unspecified (principal)
CPT/HCPCS: 36415; 72050; 72074; 72100; 80053; 85025; 85652